=== PATIENT | female | born 1995 | race Caucasian/White ===

== ENCOUNTER 2016-06-16 14:47 | Emergency (ER) | payer OTHER ==
[~2016-06-16] VITALS: Ht 152.4 cm; Wt 56.7 kg
[2016-06-16] MEDS ORDERED: OMEP40CA2 PO (14:59)
[2016-06-16] MEDS ORDERED: BACL-67 PO (14:59)
[2016-06-16] MEDS ORDERED: BCP PO (14:59)
[2016-06-16] MEDS ORDERED: NS 1,000 ML IV ONE (18:45)
[2016-06-16] MEDS ORDERED: ONDANSETRON 4MG/2ML VIAL (J2405) IV ONE (18:45)
[2016-06-16] MEDS ORDERED: KETOROLAC 30 MG/ML VIAL (J1885) IV ONE (18:45)
[2016-06-16 19:09] LABS: BASO # 0.1 K/mm3 (0.0-0.2); BASO % 0.7 % (0.0-1.0); EOS # 0.1 K/mm3 (0.0-0.50); EOS % 0.7 % (0.0-3.0); LARGE UNSTAINED CELL # 0.2 K/mm3 (0.0-0.4); LARGE UNSTAINED CELL % 1.7 % (0.0-4.0); LYMPH # 2.8 K/mm3 (1.5-6.5); LYMPH % 28.1 % (24.0-44.0); MEAN CORPUSCULAR HEMOGLOBIN 29.7 pg (27.0-33.0); MEAN CORPUSCULAR HGB CONC 33.5 g/dl (32.0-36.5); MEAN CORPUSCULAR VOLUME 88.6 fl (80.0-96.0); MONO # 0.4 K/mm3 (0.0-0.8); MONO % 4.2 % (0.0-5.0); NEUTROPHILS # 6.3 K/mm3 (1.8-7.7); NEUTROPHILS % 64.6 % (36.0-66.0); PLATELET COUNT, AUTOMATED 268 k/mm3 (150-450); RED CELL DISTRIBUTION WIDTH 12.1 % (11.5-14.5); WHITE BLOOD COUNT 9.8 K/mm3 (4.0-10.0)
[2016-06-16 19:31] LABS: ALBUMIN 4.1 GM/DL (3.2-5.2); ALBUMIN/GLOBULIN RATIO 1.28 (1.00-1.93); ALKALINE PHOSPHATASE 42 U/L (45-117); ALT/SGPT 22 U/L (12-78); AMYLASE 44 U/L (25-115); ANION GAP 9 MEQ/L (8-16); AST/SGOT 17 U/L (15-37); BILIRUBIN,DIRECT 0.2 MG/DL (0.0-0.2); BILIRUBIN,TOTAL 0.8 MG/DL (0.2-1.0); BLOOD UREA NITROGEN 9 MG/DL (7-18); CALCIUM LEVEL 8.9 MG/DL (8.5-10.1); CARBON DIOXIDE LEVEL 25 MEQ/L (21-32); CHLORIDE LEVEL 106 MEQ/L (98-107); CREATININE FOR GFR 0.59 MG/DL (0.55-1.02); GLOMERULAR FILTRATION RATE > 60.0 (>60); GLUCOSE, FASTING 85 MG/DL (70-105); SODIUM LEVEL 140 MEQ/L (136-145); TOTAL PROTEIN 7.3 GM/DL (6.4-8.2)
--- NOTE | 2016-06-16 20:03 | REP ---
Clinical: Right lower quadrant pain. Findings: Lung bases are clear. Visualized heart and pericardium normal. Liver, spleen, pancreas, bilateral adrenal glands and kidneys are normal for noncontrast examination. The patient is status post cholecystectomy. The enteric system is without obstruction or acute inflammatory process mild fecal stasis cannot be excluded as well as possible mesenteric adenitis with mildly prominent lymph nodes identified in the right lower quadrant/pericecal region. The appendix and terminal ileum are normal. Pelvis demonstrates normal bladder and age-appropriate uterus/adnexa. No ascites. No free air. No obvious retroperitoneal adenopathy. Musculoskeletal structures are intact. Impression: 1. Cannot exclude either mild fecal stasis or mesenteric adenitis. 2. Normal cecum, terminal ileum and appendix identified in the right lower quadrant. 3. No ascites or further acute intra-abdominal/pelvic pathology appreciated. Signed by Broderick Hicks MD 06/16/2016 07:55 P
[2016-06-16] MEDS ORDERED: CITRSOL8 PO (20:17)
[2016-06-16 20:30] VITALS: BP 138/77
== END 2016-06-16 20:35 | disposition home or self-care (01) ==
LOC: M ED 16:23
DX: K59.00 Constipation, unspecified (principal)
CPT/HCPCS: 74176; 80048; 80076; 81001; 81025; 82150; 83690; 85025; 96374; 96375; 99283; J1885; J2405